=== PATIENT | female | born 1995 | race Caucasian/White ===

== ENCOUNTER → 2022-08-22 12:08 | Outpatient (BNVA) | payer MEDICAID, SELFPAY | PROVIDERS: PCP Nurse Practitioner; Visit Provider Nurse Practitioner | DX: R20.2 Paresthesia of skin (principal) | CPT/HCPCS: 80053; 84443; 85025 ==

== ENCOUNTER → 2022-12-26 12:02 | Outpatient (BNVA) | payer MEDICAID, SELFPAY | PROVIDERS: PCP Family Medicine; Visit Provider Family Medicine | DX: F31.81 Bipolar II disorder (principal) | CPT/HCPCS: 80053; 80061; 85025 ==

== ENCOUNTER → 2023-01-10 12:17 | Outpatient (BNVA) | payer MEDICAID, SELFPAY | PROVIDERS: PCP Family Medicine; Visit Provider Family Medicine | DX: Z12.4 Encounter for screening for malignant neoplasm of cervix (principal) | CPT/HCPCS: 88175 ==

== ENCOUNTER → 2023-06-12 11:20 | Outpatient (BNVA) | payer MEDICAID, SELFPAY | PROVIDERS: PCP Family Medicine; Visit Provider Nurse Practitioner | DX: Z20.822 Contact with and (suspected) exposure to COVID-19 (principal) | CPT/HCPCS: 87426 ==

== ENCOUNTER 2023-08-17 19:55 | Inpatient (IN) | payer MEDICAID, SELFPAY ==
[2023-08-17 20:02] VITALS: BP 121/80; PULSE 87; RESP 14; TEMP 36.7; O2SAT 100; BMI 26.4
--- NOTE | 2023-08-17 20:20 | ED.C_ITS ---
HPI - Psych General: Chief Complaint: Psychiatric Symptoms Stated Complaint: MHE Time Seen by Provider: 08/17/23 20:06 Source: patient Mode of arrival: ambulatory Limitations: no limitations History of Present Illness: 27-year-old female who states that she has a history of bipolar along with major depression states she had med changes recently and still states that she feels like her depression is worsening. States she has been having self harming thoughts she has had some cutting her wrist she states mainly for pain relief she states she has had some suicidal ideations but no active plans. She states that she feels like she needs inpatient placement at this time for help as her depression has escalated Associated symptoms: Reports depression Review of Systems Const: Denies: fever(s), chills, body aches or change in appetite Eyes: Denies: blurry vision or eye discomfort ENMT: Denies: throat pain or dental pain Card: Denies: chest pain Resp: Denies: dyspnea GI: Denies: abdominal pain, nausea, vomiting or diarrhea : Denies: dysuria Musc: Denies: neck pain or back pain Skin/Breast: Denies: rash Neuro: Denies: headache(s) Psych: Reports: depression PFSH ED PFSH: Medical History Anxiety Depression Psychiatric care Surgical History History of placement of ear tubes History of tonsillectomy and adenoidectomy Family History Grandmother Cancer paternal-breast Other Dementia Diabetes Stroke Denies family history of CAD (coronary artery disease) Clotting disorder Hyperlipidemia Psychiatric illness Chronic kidney disease (CKD) Anesthesia complication Bleeding disorder Lung disease Hypertension Social History Smoking and tobacco/nicotine status: never used tobacco/nicotine Alcohol intake: never Substance/Drug Use: current Substance/Drug use frequency: daily Other substance/drug use details: Medical card Lives independently: Yes Marital status: Single Number of children: 3 Current occupational status: unemployed Current gender identity: Female Special mariah needs: No Agree to transfusion: Yes Female Reproductive History: Date of last menstrual period: 08/19/23 Physical Exam Const: COMMON NORMALS: no acute distress, patient oriented x3 and healthy appearing HENMT: COMMON NORMALS: normocephalic and atraumatic HEAD & SCALP: normocephalic and atraumatic Eye: COMMON NORMALS: Equal, round and reactive pupils present and EOMs intact bilaterally PUPIL: Yes Equal, round and reactive pupils present Neck/C-Spine: COMMON NORMALS: full ROM and supple Chest: COMMONS NORMALS: normal inspection of the chest Resp: COMMON NORMALS: normal respiratory effort Cardio: COMMON NORMALS: regular rate, regular rhythm and No murmurs present (Cardio) RATE: regular rate RHYTHM: regular rhythm GI: INSPECTION: Yes normal to inspection Extremity: COMMON NORMALS: normal to inspection and full ROM Neuro: COMMON NORMALS: patient oriented x3, moves all extremities and no focal motor deficits Psych: COMMON NORMALS: mental status grossly normal, Normal thought process present and cooperative MOOD & AFFECT: Yes depressed mood and Yes tearful THOUGHT PROCESS: Normal thought process present Skin: COMMON NORMALS: no rashes or lesions noted and no wounds GENERAL SKIN EXAM: no rashes or lesions noted Course Vital Signs: Vital signs: Vital Signs Temperature 98.0 F 08/17/23 20:02 Pulse Rate 87 08/17/23 20:02 Respiratory Rate 14 08/17/23 20:02 Blood Pressure 121/80 08/17/23 20:02 Pulse Oximetry 100 08/17/23 20:02 Oxygen Delivery Me thod Room Air 08/17/23 20:02 [facility] - Psych Medical Decision Making Patient presents here with depression severe in nature she is voluntarily wanting to get help from the psych alvarado she is medically cleared I spoke to Dr. Hallman will admit. Medical Records I reviewed the patient's medical records. Lab Data I reviewed the patient's lab results. 08/17/23 20:18 08/17/23 20:18 Laboratory Results WBC 7.92 10^3/uL (3.29-11.43) 08/17/23 20:18 RBC 4.66 10^6/uL (3.85-5.65) 08/17/23 20:18 Hgb 13.80 g/dL (11.27-16.99) 08/17/23 20:18 Hct 42.9 % (36-47) 08/17/23 20:18 MCV 92.1 fl (85-98) 08/17/23 20:18 MCH 29.6 pg (27-33) 08/17/23 20:18 MCHC 32.2 g/dL (30-55) 08/17/23 20:18 RDW 13.3 % (12.1-15.1) 08/17/23 20:18 Plt Count 218 10^3/cmm (157-399) 08/17/23 20:18 MPV 11.3 fL (7.4-10.4) H 08/17/23 20:18 Neut % (Auto) 55.1 % 08/17/23 20:18 Lymph % (Auto) 34.8 % 08/17/23 20:18 [place] % (Auto) 7.3 % 08/17/23 20:18 Eos % (Auto) 1.9 % 08/17/23 20:18 Baso % (Auto) 0.6 % 08/17/23 20:18 Neut # (Auto) 4.36 10^3/uL (1.8-7.7) 08/17/23 20:18 Lymph # (Auto) 2.8 10^3/uL (0.8-4.8) 08/17/23 20:18 [place] # (Auto) 0.6 10^3/uL (0.2-0.9) 08/17/23 20:18 Eos # (Auto) 0.2 10^3/uL (0.0-0.8) 08/17/23 20:18 Baso # (Auto) 0.1 10^3/uL (0.0-0.1) 08/17/23 20:18 Nucleated RBC % (auto) 0 % 08/17/23 20:18 Nucleated RBCs # 0.0 /100WBC 08/17/23 20:18 Sodium 139 mmol/L (136-145) 08/17/23 20:18 Potassium 3.3 mmol/L (3.5-5.1) L 08/17/23 20:18 Chloride 102 mmol/L (98-107) 08/17/23 20:18 Carbon Dioxide 28 mmol/L (22-29) 08/17/23 20:18 Anion Gap 12.3 (5-19) 08/17/23 20:18 BUN 8 mg/dL (6-20) 08/17/23 20:18 Creatinine 0.6 mg/dL (0.5-0.9) 08/17/23 20:18 GFR Calculation 118.2 mL/min (90-130) 08/17/23 20:18 Glucose 101 mg/dL (65-115) 08/17/23 20:18 Calculated Osmolality 286 mOsm/kg (285-295) 08/17/23 20:18 Calcium 9.3 mg/dL (8.5-10.5) 08/17/23 20:18 Total Bilirubin 0.3 mg/dL (0.15-1.2) 08/17/23 20:18 AST 27 U/L (0-32) 08/17/23 20:18 ALT 20 U/L (0-33) 08/17/23 20:18 Alkaline Phosphatase 61 U/L (35-105) 08/17/23 20:18 Total Protein 7.7 g/dL (6.6-8.7) 08/17/23 20:18 Albumin 4.7 g/dL (3.5-5.2) 08/17/23 20:18 Globulin 3.0 g/dL (1.3-4.6) 08/17/23 20:18 HCG, Qual Negative (Negative) 08/17/23 21:15 Salicylates < 0.3 mg/dL (3-10) L 08/17/23 20:18 Urine Opiates Screen Negative ng/mL (Negative) 08/17/23 21:15 Acetaminophen < 5.0 ug/mL (10-30) L 08/17/23 20:18 Ur Barbiturates Screen Negative ng/mL (Negative) 08/17/23 21:15 Ur Phencyclidine Scrn Negative ng/mL (Negative) 08/17/23 21:15 Ur Amphetamines Screen Negative ng/mL (Negative) 08/17/23 21:15 U Benzodiazepines Scrn Negative ng/mL (Negative) 08/17/23 21:15 Urine Cocaine Screen Negative ng/mL (Negative) 08/17/23 21:15 U Marijuana (THC) Screen Positive ng/mL (Negative) H 08/17/23 21:15 Ethyl Alcohol < 10 mg/dL (0-10) 08/17/23 20:18 SARS-CoV-2 Ag (Rapid) negative (Negative) 08/17/23 21:10 No radiology studies performed this visit Discharge Plan Discharge Admit Provider: Chauncey Hallman Condition: Stable Coding Level of Care Code ED Vehicle Maintenance Technician for [facility] Meneses
[2023-08-17 20:32] LABS: Basophils # 0.1 10^3/uL (0.0-0.1); Basophils % 0.6 %; Eosinophils # 0.2 10^3/uL (0.0-0.8); Eosinophils % 1.9 %; Hematocrit 42.9 % (36-47); Lymphocytes # 2.8 10^3/uL (0.8-4.8); Lymphocytes % 34.8 %; Mean Corpuscular HGB Conc 32.2 g/dL (30-55); Mean Corpuscular Hemoglobin 29.6 pg (27-33); Mean Corpuscular Volume 92.1 fl (85-98); Mean Platelet Volume 11.3 fL (7.4-10.4); Monocytes # 0.6 10^3/uL (0.2-0.9); Monocytes % 7.3 %; Neutrophils # 4.36 10^3/uL (1.8-7.7); Neutrophils % 55.1 %; Nucleated Red Blood Cells % 0 %; Platelet Count 218 10^3/cmm (157-399); Red Blood Count 4.66 10^6/uL (3.85-5.65); Red Cell Distribution Width 13.3 % (12.1-15.1); White Blood Count 7.92 10^3/uL (3.29-11.43)
[2023-08-17 20:43] LABS: Alanine Aminotransferase 20 U/L (0-33); Albumin Level 4.7 g/dL (3.5-5.2); Alkaline Phosphatase 61 U/L (35-105); Anion Gap 12.3 (5-19); Aspartate Amino Transferase 27 U/L (0-32); Blood Urea Nitrogen 8 mg/dL (6-20); Calcium 9.3 mg/dL (8.5-10.5); Carbon Dioxide 28 mmol/L (22-29); Chloride 102 mmol/L (98-107); Glomerular Filtration Rate 118.2 mL/min (90-130); Glucose 101 mg/dL (65-115); Osmolality Calculated 286 mOsm/kg (285-295); Potassium 3.3 mmol/L (3.5-5.1); Sodium 139 mmol/L (136-145); Total Bilirubin 0.3 mg/dL (0.15-1.2); Total Protein 7.7 g/dL (6.6-8.7)
[2023-08-17 20:51] LABS: Acetaminophen < 5.0 ug/mL (10-30); Alcohol Level < 10 mg/dL (0-10); Salicylate < 0.3 mg/dL (3-10)
[2023-08-17 21:21] LABS: HCG Qualitative Urine. Negative (Negative)
[2023-08-17 21:31] LABS: Amphetamines Screen Urine Negative (Negative); Barbiturates Screen Urine Negative (Negative); Benzodiazepines Screen Urine Negative (Negative); Cocaine Screen Urine Negative (Negative); Opiate Screen Urine Negative (Negative); PCP Screen Urine Negative (Negative); THC Screen Urine Positive (Negative)
[2023-08-17 21:36] LABS: SARS Covid-2 Antigen negative (Negative)
--- NOTE | 2023-08-17 21:42 | ECG_ITS ---
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 Measurements Intervals [place] Rate: 63 P: 78 NH: 179 QRS: 82 QRSD: 89 T: 75 QT: 404 QTc: 416 Interpretive Statements SINUS RHYTHM No previous ECG available for comparison Electronically Signed On 08-18-2023 12:30:12 CDT by José Miguel Pacheco M.D. [id number]
[2023-08-17] MEDS: ibuprofen 800 mg tablet PO (22:26)
[2023-08-17 22:55] VITALS: BP 110/78; PULSE 86; RESP 14; TEMP 36.7; O2SAT 99
--- NOTE | 2023-08-17 23:11 | PC.NURSE ---
Pt arrived to NPU w/NT and RN at side. Eating at this time, will complete assessment when finished eating.
[2023-08-17] MEDS: acetaminophen 325 mg Tablet 650 MG PO (23:56)
[2023-08-18 06:00] VITALS: BP 112/68; PULSE 78; RESP 16; TEMP 36.9; O2SAT 100
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
[2023-08-18] MEDS: ibuprofen 600 mg Tablet PO (12:00)
[2023-08-18 14:00] VITALS: BP 106/69; PULSE 71; RESP 16; TEMP 36.6; O2SAT 99
[2023-08-18 20:09] VITALS: BP 120/82; PULSE 72; RESP 18; TEMP 36.8; O2SAT 99
[2023-08-19 06:00] VITALS: BP 100/63; PULSE 85; RESP 16; O2SAT 98
[2023-08-19] MEDS: fluoxetine 20 mg Capsule PO (08:43)
--- NOTE | 2023-08-19 09:12 | W.PM.NPUPNS ---
Subjective NPU Subjective: Patient presented today reporting that she is feeling a little better. We had a discussion about her goals to be discharged sooner rather than later. We discussed the vision for the beginning of the week with resources in place and appointments in place. She denied any issues with the Prozac. We reestablished her at Lamictal 100 mg and talked about having a goal of getting towards 200 mg as she returns to see an outpatient provider. Mental Status Exam MSE Comments: This is a slender, diminutive, white female, in hospital scrubs, with adequate grooming and eye contact. With tattoos on exposed skin. No abnormal movements, except for mild psychomotor retardation. Cooperative with exam in mild distress. Speech was normal rate and volume. Mood described as a little better; affect congruent. Thought process, organized. Thought content: patient denied any suicidal or homicidal ideation, there were no delusions reported or noted, patient denied any auditory or visual hallucinations. Attention, concentration, and memory appeared intact, but none were formally tested. Alert and oriented times three. Insight and judgment appear fair. Impulse control is limited. Vitals/I&O/Wt Last Vital Signs Temp 98.3 F 08/18/23 20:09 Pulse 85 08/19/23 06:00 Resp 16 08/19/23 06:00 BP 100/63 08/19/23 06:00 Pulse Ox 98 08/19/23 06:00 O2 Del Method Room Air 08/19/23 06:00 Weight last 48 hrs Weight 63.503 kg Data NPU 08/17/23 20:18 08/17/23 20:18 A&P Assessment and plan (1) Cannabis use disorder, moderate, dependence: (2) Post-traumatic stress disorder, chronic: (3) Insomnia: Qualifiers: Insomnia type: psychophysiologic Qualified Code(s): F51.04 - Psychophysiologic insomnia (4) Major depressive disorder, recurrent: (5) ADHD: Qualifiers: Attention deficit-hyperactivity disorder type: predominantly inattentive Qualified Code(s): F90.0 - Attention-deficit hyperactivity disorder, predominantly inattentive type (6) Borderline personality disorder: Plan This is a 27-year-old white female with a long history of trauma and multiple medication trials who presents with self-injurious behavior, suicidal thinking open to medication changes 1. Continue current medication, possible increase in Lamictal with a goal of 200 mg that we achieved post hospitalization. Started Prozac 20 mg p.o. daily. Lamictal 100 mg p.o. daily initiated and we will likely discharge on 125 mg in route to 200 mg total. 2. Encourage individual, group, and milieu therapy. 3. Continue q-15-minute checks for safety. 4. Encourage sober living treatment after discharge at the highest level of care to which she is willing to commit. Involuntary Hold Information 96 Hour Hold: 96 Hour Involuntary Admission: No Attestations NPU Medical Necessity Statement*: Inpatient hospitalization is medically necessary and the clinically appropriate intervention, at this time. We will monitor medications and make changes as indicated. Likely length of stay is 2-4 days. Coding Level of Care Code Acute Code for [facility] Diagnoses Cannabis use disorder, moderate, dependence F12.20 Post-traumatic stress disorder, chronic F43.12 Insomnia F51.04 Insomnia type: psychophysiologic Major depressive disorder, recurrent F33.9 ADHD F90.0 Attention deficit-hyperactivity disorder type: predominantly inattentive Borderline personality disorder F60.3
[2023-08-19] MEDS: lamoTRIgine 25 mg Tablet 75 MG PO (09:14)
[2023-08-19] MEDS: lamoTRIgine 25 mg Tablet PO (09:38)
[2023-08-19 13:53] VITALS: BP 94/57; PULSE 76; RESP 16; TEMP 36.8; O2SAT 98
[2023-08-19 20:14] VITALS: BP 91/60; PULSE 68; RESP 16; TEMP 36.9; O2SAT 98
[2023-08-20 06:00] VITALS: BP 109/75; PULSE 72; RESP 16; TEMP 36.8; O2SAT 98
[2023-08-20] MEDS: lamoTRIgine 100 mg Tablet PO (07:53)
[2023-08-20] MEDS: fluoxetine 20 mg Capsule PO (07:53)
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
[2023-08-20 08:27] VITALS: BP 109/75; PULSE 72; RESP 16; TEMP 36.8; O2SAT 98
[2023-08-20] MEDS: atomoxetine 40 mg Capsule 80 MG PO (08:43)
== END 2023-08-20 08:50 | disposition home or self-care (01) | DRG 885 ==
LOC: ER 20:44 → NP 22:01
PROVIDERS: Admitting Provider Psychiatry & Neurology Psychiatry; Emergency Provider Emergency Medicine; PCP Family Medicine; Visit Provider Psychiatry & Neurology Psychiatry
DX: F33.9 Major depressive disorder, recurrent, unspecified (principal); R45.851 Suicidal ideations; F41.9 Anxiety disorder, unspecified; F12.20 Cannabis dependence, uncomplicated; F60.3 Borderline personality disorder; F43.12 Post-traumatic stress disorder, chronic; F51.04 Psychophysiologic insomnia; F90.0 Attention-deficit hyperactivity disorder, predominantly inattentive type; Z91.52 Personal history of nonsuicidal self-harm; Z62.812 Personal history of neglect in childhood; Z62.810 Personal history of physical and sexual abuse in childhood; Z62.811 Personal history of psychological abuse in childhood; Z81.8 Family history of other mental and behavioral disorders; Z81.3 Family history of other psychoactive substance abuse and dependence
CPT/HCPCS: 36415; 80053; 80306; 80307; 81025; 85025; 87426; 93005; 97165; 99285

== ENCOUNTER → 2023-12-14 15:04 | Outpatient (BNVA) | payer MEDICAID, SELFPAY | PROVIDERS: PCP Nurse Practitioner Family; Visit Provider Nurse Practitioner Family | DX: R50.9 Fever, unspecified (principal) | CPT/HCPCS: 87400; 87426 ==

== ENCOUNTER → 2024-01-19 15:24 | Outpatient (BNVA) | payer OTHER, SELFPAY | PROVIDERS: PCP Nurse Practitioner Family; Visit Provider Nurse Practitioner Family | DX: N39.0 Urinary tract infection, site not specified (principal); A49.9 Bacterial infection, unspecified; R31.9 Hematuria, unspecified | CPT/HCPCS: 74018; 81000 ==

== ENCOUNTER → 2024-01-25 17:21 | Outpatient (BNVA) | payer MEDICAID, SELFPAY | PROVIDERS: PCP Nurse Practitioner Family; Visit Provider Registered Nurse Neonatal Intensive Care | DX: R39.9 Unspecified symptoms and signs involving the genitourinary system (principal); N89.8 Other specified noninflammatory disorders of vagina; Z72.51 High risk heterosexual behavior | CPT/HCPCS: 81000; 81025; 87086; 87491; 87591 ==